=== PATIENT | male | born 1985 | race Caucasian/White ===

== ENCOUNTER 2019-05-04 09:56 | Emergency (ER) | payer SELFPAY ==
[~2019-05-04] VITALS: Ht 167.6 cm; Wt 81.6 kg
[2019-05-04 10:04] VITALS: BP 142/88
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
[2019-05-04] MEDS ORDERED: KETOROLAC TROMETHAMINE INJ 60 MG/2 ML VIAL IM ONE (10:30)
[2019-05-04] MEDS ORDERED: KETOROLAC TROMETHAMINE INJ 30 MG/ML VIAL ONE (10:35)
--- NOTE | 2019-05-04 10:57 | NUR ---
PATIENT C/O BLURRY VISION ON LEFT EYE. DR. MORENO MADE AWARE.
== END 2019-05-04 11:39 | disposition home or self-care (01) ==
LOC: ER 10:03
DX: S00.03XA Contusion of scalp, initial encounter (principal); H53.8 Other visual disturbances; V49.49XA Driver injured in collision with other motor vehicles in traffic accident, initial encounter; Y93.89 Activity, other specified; Y92.488 Other paved roadways as the place of occurrence of the external cause; Y99.8 Other external cause status
CPT/HCPCS: 76536; 96372; 99284; J1885